=== PATIENT | female | born 2005 ===

== ENCOUNTER 2024-03-20 05:52 | Day surgery (SDC) | payer OTHER, SELFPAY ==
[2024-03-04 13:00] VITALS: BMI 20.9
[2024-03-20] VITALS (7 sets, daily range): BP systolic 121–128; BP diastolic 79–89; PULSE 69–114; RESP 16–20; TEMP 35.9–36.6; O2SAT 20–100; BMI 21.2
[2024-03-20] MEDS: SCOPOLAMINE 1 MG PATCH 1 PATCH TRANSDERM (06:50)
[2024-03-20] MEDS: LACTATED RINGERS 1,000 ML 30 ML IV CONT ×2 (06:50→08:29)
--- NOTE | 2024-03-20 06:56 | WPDHPUPDATE1 ---
History and Physical Update Update Date/Time: 03/20/24 06:56 History and Physical has been reviewed, including an updated exam of the patient. There are NO changes in the patient's condition. Risks, benefits, and alternatives have been discussed and questions answered. Patient agrees to proceed with procedure.
--- NOTE | 2024-03-20 06:56 | W.PM.PROC2 ---
Procedure Note - Detailed Date of Procedure 03/20/24 Pre-op Diagnosis Micromastia Post-op Diagnosis Same Procedure Performed Bilateral augmentation mammaplasty Surgeon Alo Duong MD Anesthesia General Findings Bilateral Amira Penaloza SoftTouch 360 cc Right - REF# [id number] SN [id number] Left - REF# [id number] SN [id number] Description of Procedure She is here today for bilateral breast augmentation. Previously and again today the risks, benefits, alternatives were discussed in extensive detail. I wanted her to be very realistic about the risks involved as well as expectations. She understands this is an off label use and what that means. She understands she will have no warranty with this device. We discussed aftercare and what to monitor for. Made sure answered all of her questions to her satisfaction today and consent was obtained. Marked in the preoperative holding area with their verification. The patient was taken to the operating room placed supine on the operating table. Anesthesia was provided by anesthesiology. A surgical time-out was taken. We cleansed the skin and 1% lidocaine and 0.25% Marcaine with epinephrine was used anesthetize as a field block. She was prepped and draped in a standard sterile fashion. Tegaderm nipple Chatman were placed. A 15 blade used to make an incision along the inframammary fold. Dissection was continued at 45 degree angle until the chest wall as identified. I incised the pectoralis major along its inferior border and completely released the inferior border leaving the medial border intact. I created a subpectoral pocket in the appropriate dimensions based on our preoperative planning for the implant. I then copiously irrigated with saline solution and verified a strict hemostasis. Next the use a triple antibiotic and Betadine containing solution to irrigate the pocket. I washed my gloves with the triple antibiotic and Betadine solution. We washed the implant immediately upon opening it with this solution and only opened it when we needed it. I used implant funnel and no-touch technique. The implant was introduced into the pocket using the funnel. Having verified positioning of the implant this was closed using 2-0 PDS followed by 3-0 Monocryl in a running subcuticular 4-0 Monocryl followed by tissue glue. Fluffs and surgical bra were placed. Patient was awoke and taken to PACU without difficulty. All instrument sponge counts were correct at the end of the case. Estimated Blood Loss 20 Drains No Packing No Pathology None sent Complications No immediate complications Condition Stable Disposition PACU
--- NOTE | 2024-03-20 06:57 | SUR.PREOP ---
FEMALE RN IN ROOM WHILE DR DE LA CRUZ MARKED PT. PT'S MOTHER ALSO AT BEDSIDE
--- NOTE | 2024-03-20 07:06 | P.PNAN_ITS ---
Anes - Initial Pre Proc Eval Procedure: Operation Date: 03/20/24 07:30 Proposed Procedures p Bilateral Breast Augmentation Mammoplasty - Alo Duong MD Date/Time: 03/20/24 07:06 Surgeon: Alo Duong MD Pre Op Diagnosis: Micromastia Patient Data Age: 18 Gender: F Height: 1.68 m Weight: 59.5 kg Last Vital Signs Temp 36.6 C 03/20/24 06:38 Pulse 69 03/20/24 06:38 Resp 16 03/20/24 06:38 BP 121/79 03/20/24 06:38 Pulse Ox 100 03/20/24 06:38 O2 Del Method Room Air 03/20/24 06:38 Allergies Allergy/AdvReac Type Severity Reaction Status Date / Time Penicillins Allergy Rash Verified 03/20/24 06:13 Home Medications Medication Instructions Recorded Confirmed Type norethindrone acetate 1 mg-ethinyl 1 tablet PO DAILY 03/04/24 03/20/24 History estradiol 20 mcg tablet (Junel) spironolactone 100 mg tablet 100 mg PO DAILY 03/04/24 03/20/24 History Patient hx anesthesia problems: none Family hx anesthesia problems: none Results Review: All pre-operative results and documents have been reviewed as part of the pre- operative evaluation. [facility] Surgical History Surgical History (Updated 03/20/24 @ 07:07 by Vic Burton MD) H/O myringotomy Social History Social History Smoking status: Never smoker Second hand tobacco smoke exposure: Yes Alcohol intake: current Alcohol use details: occasional Substance use type: does not use Living arrangements: with family Spiritual care concerns: No Anes - Eval Final PreProcedure Day of Procedure 03/20/24 07:06 Patient weight: normal Heart: regular rate and rhythm Lungs: clear to auscultation Airway: Mallampati scale class 1 Neurological: alert and oriented Last oral intake: >/= 8 hours ASA classification: I Emergent: no Anesthetic plan: proceed Anesthesia type and monitoring: general LMA and standard monitoring Results Review: All pre-operative results and documents have been reviewed as part of the pre-operative evaluation. Informed Consent: The patient's anesthetic plan and its attendant risks and benefits were discussed with the patient/family/POA. Questions were solicited and answers provided to the satisfaction of the patient/family/POA.
--- NOTE | 2024-03-20 07:11 | SUR.PREOP ---
PT RECEIVING 500CC IVF BOLUS PER DR DE LA CRUZ ORDERS
[2024-03-20] MEDS: ceFAZolin SODIUM 2 GM/20 ML SW SYRINGE IV PUSH (07:28)
[2024-03-20] MEDS: TRANEXAMIC ACID 1,000 MG/10 ML AMPUL 1000 MG IV PUSH (07:34)
[2024-03-20] MEDS: NACL 0.9% IRRIG POUR BOTTLE 900 ML, GENTAMICIN SULFATE INJ 160 MG, ceFAZolin 2 GM, POVI... IRRIGATION (08:10)
[2024-03-20] MEDS: LIDO 1%/EPINEPHRINE 1:100,000 50 ML VIAL 30 ML INFILTRATE (08:15)
[2024-03-20] MEDS: fentaNYL CITRATE INJ (*CRX) 100 MCG/2 ML VIAL 25 MCG IV PUSH ×2 (08:54→09:11)
[2024-03-20] MEDS: oxyCODONE HCL (*CRX) 5 MG TAB IR PO (09:46)
--- NOTE | 2024-03-20 10:10 | WPDANESPN ---
Anes - Prog Note Post-Op Date/Time: 03/20/24 10:10 Cardiovascular status: normal Respiratory status: normal Airway patency: baseline Mental status: baseline Post-Op hydration status: normal Vital Signs: Last Vital Signs Temp 36.1 C L 03/20/24 09:10 Pulse 74 03/20/24 09:45 Resp 18 03/20/24 09:45 BP 123/86 03/20/24 09:45 Pulse Ox 98 03/20/24 09:45 O2 Del Method Room Air 03/20/24 09:45 O2 Flow Rate 6 03/20/24 08:40 Pain Score (VAS): 4/10 I/O: Intake & Output 03/19/24 03/20/24 03/20/24 23:59 07:59 15:59 Intake Total 500 300 Balance 500 300 Patient Feedback: Patient satisfied with anesthetic care.
== END 2024-03-20 10:12 | disposition home or self-care (01) ==
PROVIDERS: Visit Provider Surgery Plastic and Reconstructive Surgery
PROC: (CPT 19325; principal; 2024-03-20 07:30)
DX: N64.82 Hypoplasia of breast (principal)
CPT/HCPCS: 19325